=== PATIENT | female | born 2005 | race Caucasian/White ===

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

== ENCOUNTER 2024-07-28 10:57 | Emergency (ER) | payer OTHER, SELFPAY ==
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
[2024-07-28 11:05] VITALS: BP 144/96; PULSE 88; O2SAT 100; BMI 19.3
[2024-07-28 11:30] VITALS: BP 125/75; PULSE 84; RESP 18; TEMP 36.6; O2SAT 100
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
[2024-07-28] MEDS: Ibuprofen 600 MG TABLET PO (11:55)
[2024-07-28 12:33] LABS: HCG Quantitative < 2 mIU/mL
[2024-07-28 13:38] VITALS: BP 115/67; PULSE 81; RESP 16; TEMP 36.8; O2SAT 100
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
--- OUTSIDE RECORDS SUMMARY | 2024-07-28 14:13 | XMS_ITS ---
Author Name [facility] Organization Unknown Results Test Name/Text Value Interpretation Date Range Source Bacteria Ur Cult SEE NOTE Abnormal [id number] [facility] vaginalis rRNA Spec Ql LEANN+probe NOT DETECTED Normal - [facility] BV bacteria rRNA Vag Ql LEANN+probe POSITIVE Abnormal - [facility] [place] rRNA Vag Ql Probe DETECTED Abnormal - [facility] C trach rRNA Spec Ql LEANN+probe NOT DETECTED Normal [id number] - [facility] N gonorrhoea rRNA Spec Ql LEANN+probe NOT DETECTED Normal - [facility] glabrata RNA Vag Ql LEANN+probe NOT DETECTED Normal - [facility] History of Medication Use Medication Directions Dispensed Refills Start Date End Date Stat fluconazole 100 mg tablet active triamcinolone acetonide 0.1 % topical cream 9 completed Advair HFA 115 mcg-21 mcg/actuation aerosol inhaler INHALE 2 PUFFS BY MOUTH TWICE A DAY 2 completed hydrocortisone 2.5 % topical ointment APPLY THIN COAT TO AFFECTED AREA TWICE A DAY 4 completed clindamycin 1 %-benzoyl peroxide 5 % topical gel APPLY TO AFFECTED AREA EVERY DAY APPLY TO AFFECTED AREA EVERY DAY completed pantoprazole 20 mg tablet,delayed release TAKE 1 TABLET DAILY 1ST THING IN THE MORNING WITHOUT ANYTHING TO EAT OR DRINK FOR 30 MINUTES TAKE 1 TABLET DAILY 1ST THING IN THE MORNING WITHOUT ANYTHING TO EAT OR DRINK FOR 30 MINUTES completed montelukast 5 mg chewable tablet active quetiapine 25 mg tablet 1 completed omeprazole 20 mg capsule,delayed release TAKE 1 CAPSULE BY MOUTH EVERY DAY TAKE 1 CAPSULE BY MOUTH EVERY DAY completed ciprofloxacin 500 mg tablet TAKE 1 TABLET BY MOUTH TWICE A DAY FOR 7 DAYS 1 completed famotidine 20 mg tablet 1 TABLET ORALLY 2 TIMES A DAY FOR 30 DAYS 1 completed prednisone 10 mg tablet TAKE 3 TABLETS BY MOUTH TWICE A DAY FOR 5 DAYS TAKE 3 TABLETS BY MOUTH TWICE A DAY FOR 5 DAYS completed ondansetron 4 mg disintegrating tablet TAKE 1 TABLET BY MOUTH EVERY 6 HOURS NEEDED FOR NAUSEA/VOMITING 4 completed azithromycin 250 mg tablet Take 2 tablets (500 mg) by oral route once daily for 1 day then 1 tablet (250 mg) by oral route once daily for 4 days 04/30/2023 4 active melatonin 5 mg tablet Take 1 tablet every day by oral route at bedtime for 30 days. Take 1 tablet every day by oral route at bedtime for 30 days. completed fluoxetine 20 mg capsule TAKE 1 CAPSULE BY MOUTH EVERY DAY 1 completed lidocaine-prilocaine 2.5 %-2.5 % topical cream APPLY BY TOPICAL ROUTE UNDER OCCLUSION. 6 completed FLUoxetine (PROzac) 10 MG capsule Take 1 capsule (10 mg total) by mouth daily. 04/28/2020 active ibuprofen 600 mg tablet Take 1 tablet every 6-8 hours by oral route as needed. 3 completed fluticasone propionate 50 mcg/actuation nasal spray,suspension Fromberg 1 spray every day by intranasal route. active sulfamethoxazole 200 mg-trimethoprim 40 mg/5 mL oral suspension active Auvi-Q 0.3 mg/0.3 mL injection, auto-injector 6 completed guanFACINE (TENEX) 1 MG tablet Take 1 tablet (1 mg total) by mouth 2 (two) times a day. 04/28/2020 active naproxen 500 mg tablet TAKE 1 TABLET BY MOUTH TWICE A DAY NEEDED FOR PAIN 1 completed fluconazole (diFLUcan) 150 MG tablet Take 1 tablet (150 mg total) by mouth every third day (72 hrs). Take 1 tab PO on day 1. If symptoms persist, may take 1 tab PO again three days later. 04/14/2024 4 active fluoxetine 10 mg capsule TAKE 1 CAPSULE BY MOUTH EVERY DAY 1 completed Zithromax Z-Michele 250 mg tablet active ProAir RespiClick 90 mcg/actuation breath activated INHALE 2 PUFFS BY MOUTH EVERY 4 TO 6 HOURS NEEDED 0 completed Acne Medication 5 % topical gel APPLY TO THE FACE BY TOPICAL ROUTE ONCE DAILY active lorazepam 0.5 mg tablet active Nasonex 50 mcg/actuation Fromberg activ e Pain and Fever 325 mg tablet Take 2 tablets every 4-6 hours by oral route as needed. Take 2 tablets every 4-6 hours by oral route as needed. completed Zithromax 500 mg tablet Take 1 tablet every day by oral route for 5 days. 08/27/2023 active Symbicort 80 mcg-4.5 mcg/actuation HFA aerosol inhaler active metronidazole 500 mg tablet TAKE 1 TABLET BY MOUTH TWICE A DAY FOR 7 DAYS 3 completed Advair HFA 115 mcg-21 mcg/actuation aerosol inhaler INHALE 2 PUFFS BY MOUTH TWICE A DAY INHALE 2 PUFFS BY MOUTH TWICE A DAY completed polymyxin B sulfate 10,000 unit-trimethoprim 1 mg/mL eye drops INSTILL 2 DROPS INTO BOTH EYES 3 TIMES DAILY FOR 5-7 DAYS 3 completed Ventolin HFA 90 mcg/actuation aerosol inhaler INHALE 4 PUFFS BY INHALATION ROUTE EVERY 4-6 HOURS NEEDED FOR COUGH/WHEEZE active metronidazole 500 mg tablet TAKE 1 TABLET BY MOUTH TWICE A DAY FOR 7 DAYS TAKE 1 TABLET BY MOUTH TWICE A DAY FOR 7 DAYS completed Zithromax Z-Michele 250 mg tablet Take 2 tablets (500 mg) by oral route once daily for 1 day then 1 tablet (250 mg) by oral route once daily for 4 days Take 2 tablets (500 mg) by oral route once daily for 1 day then 1 tablet (250 mg) by oral route once daily for 4 days completed omeprazole 20 mg capsule,delayed release TAKE 1 CAPSULE BY MOUTH EVERY DAY 3 completed Pataday 0.2 % eye drops INSTILL 1 DROP INTO AFFECTED EYE(S) BY OPHTHALMIC ROUTE ONCE DAILY INSTILL 1 DROP INTO AFFECTED EYE(S) BY OPHTHALMIC ROUTE ONCE DAILY completed Multi-Vitamin With Fluoride 1 mg chewable tablet Take 1 tablet every day by oral route. active Allergies Allergen Reaction Severity Comment Documented Date Source Statu s MEDICINAL PRODUCT CONTAINING PENICILLIN AND ACTING ANTIBACTERIAL AGENT (PRODUCT) hives [facility]P MEDICINAL PRODUCT CONTAINING CEPHALOSPORIN AND ACTING ANTIBACTERIAL AGENT (PRODUCT) hives [facility] active Problems Problem Status Onset Date Problem Type Date of Resolution Source Adjustment disorder with mixed disturbance of emotions and conduct active 2020-04-04 ProblemAct [facility] Weight loss active 2019-08-19 ProblemAct [facility] P Asthma active 2007-10-01 ProblemAct [facility] Problem behavior active 2020-03-16 ProblemAct [facility] Anxiety active 2019-01-28 ProblemAct [facility] Allergic rhinitis active 2007-07-29 ProblemAct [facility] Dysmenorrhea active 2019-06-26 ProblemAct [facility] 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 History of SARS-CoV-2 active 2020-07-20 ProblemAct [facility] Congenital pectus excavatum active 2017-04-24 ProblemAct [facility] Ecchymosis active 2019-08-19 ProblemAct [facility] Major depressive disorder, recurrent episode, mild active 2020-04-04 ProblemAct [facility] Parent-child relational problem active 2020-04-04 ProblemAct [facility] Vaginal discharge active EncounterDiagnosisAct [facility] Vaginal yeast infection active EncounterDiagnosisAct [facility] Depressive disorder active 2020-04-11 ProblemAct [facility] Immunizations Vaccine Date Source Lot Number Status Hib, unspecified formulation 12/06/2005 [facility] completed Hep B, unspecified formulation 03/15/2005 [facility] completed Hep A, ped/adol, 2 dose 12/18/2017 [facility] [id number] ompleted Tdap 02/03/2016 [facility] [id number] completed DTaP, unspecified formulation 05/03/2006 [facility] completed Influenza, split virus, quadrivalent, PF 02/03/2016 [facility] P [id number] completed Hib, unspecified formulation 06/13/2005 [facility] completed MMR 10/19/2008 [facility] completed Influenza, split virus, quadrivalent, PF 01/12/2019 [facility] P [id number] completed HPV9 12/18/2017 [facility] [id number] completed IPV 01/30/2005 [facility] completed Hib, unspecified formulation 2004 [facility] completed Hep A, unspecified formulation 09/07/2005 [facility] completed DTaP, unspecified formulation 03/15/2005 [facility] completed meningococcal MCV4P 02/03/2016 [facility] [id number] compl eted Hep B, unspecified formulation 2004 [facility] completed DTaP, unspecified formulation 12/06/2005 [facility] completed Hep B, unspecified formulation 2004 [facility] completed varicella 09/07/2005 [facility] completed DTaP, unspecified formulation 2004 [facility] completed MMR 09/07/2005 [facility] completed varicella 10/19/2008 [facility] completed HPV9 02/03/2016 [facility] [id number] completed DTaP 10/20/2009 [facility] [id number] completed Hib, unspecified formulation 01/30/2005 [facility] completed pneumococcal conjugate PCV 7 03/15/2005 [facility] completed pneumococcal conjugate PCV 7 2004 [facility] completed pneumococcal conjugate PCV 7 01/30/2005 [facility] completed IPV 10/20/2009 [facility] [id number] completed IPV 03/15/2005 [facility] completed pneumococcal conjugate PCV 7 09/07/2005 [facility] completed IPV 2004 [facility] completed DTaP, unspecified formulation 01/30/2005 [facility] completed Encounters Encounter Type Encounter Reason Primary Diagnosis Location Date Ambulatory Vaginitis Vaginitis [facility] 04/14/2024 Ambulatory Pneumonia, unspecified organism Pneumonia, unspecified organism [facility] 04/02/2024 Ambulatory Acute pharyngitis, unspecified Acute pharyngitis, unspecified [facility] 02/07/2024 Ambulatory Streptococcal pharyngitis Streptococcal pharyngitis [facility] 01/22/2024 Ambulatory Acute sinusitis, unspecified Acute sinusitis, unspecified [facility] 08/27/2023 Ambulatory Acute pharyngitis, unspecified Acute pharyngitis, unspecified [facility] 07/11/2023 Ambulatory Acute pharyngitis, unspecified Acute pharyngitis, unspecified [facility] 07/03/2023 Ambulatory Other specified noninflammatory disorders of vagina Other specified noninflammatory disorders of vagina [facility] 06/24/2023 Ambulatory Streptococcal pharyngitis [facility] 05/20/2023 Ambulatory Other specified noninflammatory disorders of vagina [facility] 04/30/2023 Ambulatory Dysuria [facility] 04/19/2023 Ambulatory Pneumonia, unspecified organism [facility] 04/02/2023 Ambulatory Other specified noninflammatory disorders of vagina [facility] 04/01/2023 Ambulatory Acute pharyngitis, unspecified [facility] 03/25/2023 Ambulatory Acute pharyngitis, unspecified [facility] 01/12/2023 Ambulatory Dysuria [facility] 01/09/2023 Ambulatory Other specified noninflammatory disorders of vagina [facility] 12/21/2022 Ambulatory Rash and other nonspecific skin eruption [facility] 12/11/2022 Ambulatory Unspecified contact dermatitis, unspecified cause [facility] 12/05/2022 Ambulatory [facility] 11/26/2022 Ambulatory [facility] 11/13/2022 Ambulatory [facility] 08/28/2022 Ambulatory [facility] 07/25/2022 Ambulatory [facility] 05/15/2022 Ambulatory [facility] 03/12/2022 Ambulatory [facility] 02/13/2022 Ambulatory [facility] 12/19/2021 Ambulatory [facility] 08/23/2021 Ambulatory [facility] 06/19/2021 Ambulatory [facility] 05/29/2021 Ambulatory [facility] 04/26/2021 Ambulatory [facility] 04/20/2021 Ambulatory [facility] 03/22/2021 Care Team Organization Name Specialty Phone Email Start Date End Da te ReactX Ginger Germani DO Primary Care 04/18/202407/15 [facility] Ginger Germani DO Primary Care 04/15/2024 [facility] Not Disclosed Primary Care 05/19/2023 [facility] 01/08/2023 [facility] 03/12/2022 [facility] 03/22/2021 03/12/2022 [facility]
--- OUTSIDE RECORDS SUMMARY | 2024-07-28 14:13 | XMS_ITS | Data Portability ---
Author Organization [facility], [id number] Address [address] [place] [address] Assessment No assessment recorded. Plan of Treatment Reminders Order Date Submit Date Provider Last Modified By Organization Details Last Modified Time Details Appointments None record ed. Lab None record ed. Referral None record ed. Procedures None record ed. Surgeries None record ed. Imaging None record ed. Medication Orders None record ed. Patient TargetsNo targets recorded. Patient InstructionsNo instructions recorded. Reason for Referral None Reported. Medical Equipment None Reported. Medications Name Sig Start Date Stop Date Status Note LastModified by Organization Details LastModified Time prednisone 10 mg tablet TAKE 3 TABLETS BY MOUTH TWICE A DAY FOR 5 DAYS active Not Available Not Available No t Available albuterol sulfate 2.5 mg/3 mL (0.083 %) solution for nebulization INHALE 1 VIAL VIA NEBULIZER EVERY 4-6 HOURS FOR 7 DAYS active Not Available Not Available No t Available azithromycin 250 mg tablet TAKE 2 TABLETS BY MOUTH TODAY, THEN TAKE 1 TABLET DAILY FOR 4 DAYS active Not Available Not Available No t Available metronidazol e 0.75 % (37.5 mg/5 gram) vaginal gel INSERT 1 APPLICATORF UL VAGINALLY AT BEDTIME FOR 5 NIGHTS active Not Available Not Available No t Available sulfamethoxa zole 800 mg-trimethop rim 160 mg tablet TAKE 1 TABLET BY MOUTH TWICE A DAY FOR 10 DAYS active Not Available Not Available No t Available pantoprazole 20 mg tablet,delay ed release TAKE 1 TABLET DAILY 1ST THING IN THE MORNING WITHOUT ANYTHING TO EAT OR DRINK FOR 30 MINUTES active Not Available Not Available N ot Available phenazopyrid ine 100 mg tablet TAKE 1 TABLET BY MOUTH THREE TIMES A DAY FOR 2 DAYS active Not Available Not Available N ot Available polymyxin B sulfate 10,000 unit-trimeth oprim 1 mg/mL eye drops INSTILL 2 DROPS INTO BOTH EYES 3 TIMES DAILY FOR 5-7 DAYS active Not Available Not Available No t Available 05/18 (28) 1 mg-20 mcg (21)/75 mg (7) tablet TAKE 1 TABLET BY MOUTH EVERY DAY active Not Available Not Available No t Available nitrofuranto in monohydrate/ macrocrystal s 100 mg capsule TAKE 1 CAPSULE BY MOUTH EVERY 12 HOURS FOR 5 DAYS active Not Available Not Available N ot Available Vitals None Recorded Social History None recorded. Functional Status None recorded. Mental Status None recorded. Family History Nothing Reported. Medical History No medical history recorded. Gynecological HistoryNo gynecological history recorded. Obstetrics History GPAL:G 0 P 0 0 0 0 Past Encounters Encounter ID Performer Location Encounter Start Date Encounter Closed Date Diagnosis/Indication Diagnosis SNOMED-CT Code Diagnosis ICD10 Code Diagnosis Note [id number] [address] [place] [address] 07/31/2020 18:49:02 07/31/2020 20:26:30 Health Concerns Section Related Observation LastModified by Organization Detai ls LastModified Time None Recorded Concern Status LastModified by Organization Details LastModified Time None Recorded Advance Directives Directive None Recorded Payers Encounter Date Sequence Insurance Name Policy Number Policy Couch Covered Member ID Couch Member ID Guarantor Name 07/31/2020 1 [place] [id number] Neeru Llanes [id number] Neeru Llanes 07/31/2020 1 [place] [facility] Neeru Llanes [id number] Neeru Llanes OBGyn Episode No OBEpisode recorded.
[2024-07-28 14:30] VITALS: BP 115/67; PULSE 81; RESP 16; TEMP 36.8; O2SAT 100
== END 2024-07-28 14:31 | disposition home or self-care (01) ==
PROVIDERS: Emergency Provider Emergency Medicine
DX: S60.222A Contusion of left hand, initial encounter (principal); V43.52XA Car driver injured in collision with other type car in traffic accident, initial encounter; M79.645 Pain in left finger(s); Y93.89 Activity, other specified; Y92.414 Local residential or business street as the place of occurrence of the external cause; Y99.9 Unspecified external cause status; Z79.899 Other long term (current) drug therapy
CPT/HCPCS: 36415; 70450; 72125; 73120; 84702; 99283; 99284

== ENCOUNTER → 2024-07-28 11:33 | Outpatient (BNV) | payer BC, SELFPAY | PROVIDERS: Emergency Provider Emergency Medicine; Visit Provider Radiology Diagnostic Radiology | DX: M54.2 Cervicalgia (principal); M79.642 Pain in left hand | CPT/HCPCS: 70450; 72125; 73120 ==

== ENCOUNTER 2024-08-02 22:48 | Emergency (ER) | payer MEDICAID, SELFPAY ==
[2024-08-02 23:31] VITALS: BP 128/83; PULSE 85; RESP 18; TEMP 36.9; O2SAT 99; BMI 19.2
--- OUTSIDE RECORDS SUMMARY | 2024-08-03 00:22 | XMS_ITS | Data Portability ---
Author Organization [facility], [address] Address [address] [place] [address] Assessment No assessment recorded. Plan of Treatment [...] SNOMED-CT Code Diagnosis ICD10 Code Diagnosis Note [id number] [place] [address] 07/31/2020 18:49:02 07/31/2020 20:26:30 Health Concerns Section Related Observation LastModified by Organization Detai ls LastModified Time None Recorded Concern Status LastModified by Organization Details LastModified Time None Recorded Advance Directives Directive None Recorded Payers Encounter Date Sequence Insurance Name Policy Number Policy Couch Covered Member ID Couch Member ID Guarantor Name 07/31/2020 1 [place] [id number] Neeru Llanes [id number] Neeru Llanes 07/31/2020 1 [place] [facility] Neeru Llanes [id number] Neeru Llanes OBG[facility] Episode No OBEpisode recorded.
--- OUTSIDE RECORDS SUMMARY | 2024-08-03 00:22 | XMS_ITS | Clinical Summary ---
Author Organization [facility] Address [address] [place] [address] Care Team Providers Care Shift Commander Name Role Phone Ginger Aquino MD Primary Care Provider [phone] Allergies Active Allergy Reactions Criticality Noted Date [...] Date Diagnosed Date Depression 04/12/2020 Care Teams Shift Commander Relationship Specialty Start Date End Date Ginger Aquino MD PCP - General Pediatric, General 04/01/20
[2024-08-03 00:58] LABS: Influenza A PCR NEGATIVE (Negative); Influenza B PCR NEGATIVE (Negative); Resp Syncy Virus RNA Qual PCR NEGATIVE (Negative); SARS COV2 PCR INHOUSE POSITIVE (Negative)
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
[2024-08-03 01:50] LABS: IDNOW Serial# 6674DD1D; Strep A Nucleic Acid Negative (Negative)
[2024-08-03 02:02] VITALS: BP 128/83; PULSE 85; RESP 18; TEMP 36.9; O2SAT 99
== END 2024-08-03 02:02 | disposition home or self-care (01) ==
PROVIDERS: Emergency Provider Emergency Medicine
DX: U07.1 COVID-19 (principal); J02.9 Acute pharyngitis, unspecified; M79.10 Myalgia, unspecified site
CPT/HCPCS: 0241U; 87651; 99283